=== PATIENT | female | born 1965 | race Asian ===

== ENCOUNTER 2018-05-20 08:41 | Day surgery (SDC) | payer OTHER, SELFPAY ==
[2018-05-18 10:39] VITALS: BMI 27.4
--- NOTE | 2018-05-20 | PATH_ITS ---
[facility] Accession Number: [id number] . 01 Material submitted: . PERINEAL CYST . 01 Diagnosis: Skin, Perineal Cyst, Excision: Epidermal inclusion cyst. MRV/05/22/2018 . 01 Electronically signed: . Hanna Hugo MD, Pathologist NPI- [id number] . 01 Gross description: . Received one formalin-filled container labeled with the patient's name and labeled perineal cyst. The specimen consists of a cordon-rosario, ovoid portion of skin and tissue which measures 1.0 x 0.7 x 0.7 cm. The specimen is inked blue. One dermatology sales representative section is submitted in one cassette. ([id number]) /FRR . 01 Pathologist provided ICD-10: L72.0 . 01 CPT . 952091 Performed at: 01 [facility] [address] [place] [address] [id number] MD Edilberto Caldwell MD Phone: [phone]
[2018-05-20 08:57] VITALS: BP 114/70; PULSE 87; RESP 16; TEMP 36.5; O2SAT 98; BMI 28.1
[2018-05-20] MEDS: LACTATED RINGERS 1,000 ML 42 ML IV (09:26)
[2018-05-20] MEDS: LIDOCAINE 1% W/EPI INJ 20 ML INJ (09:35)
[2018-05-20] MEDS: CEFOTETAN 2 GM/50 ML PIGGYBACK IV (09:35)
[2018-05-20] MEDS: BUPIVACAINE 0.5% (PF) VIAL 30 ML INJ (09:35)
--- NOTE | 2018-05-20 09:50 | SUR.OPER ---
Lithotomy on padded OR bed, head on pillow, arms secured on padded arm boards at <90 degrees abduction. Legs secured in padded yellow fins stirrups.
[2018-05-20 10:02] VITALS: BP 108/58; PULSE 79; RESP 16; TEMP 36.6; O2SAT 96
[2018-05-20] MEDS: BACITRACIN 28 GM OINT 1 APPLIC TOP (10:06)
[2018-05-20 10:07] VITALS: BP 110/60; PULSE 75; RESP 14; TEMP 36.6; O2SAT 97
[2018-05-20 10:12] VITALS: BP 115/63; PULSE 71; RESP 13; TEMP 36.5; O2SAT 97
--- NOTE | 2018-05-20 10:20 | PM.PREOP ---
Pre-operative Note Interval Note Pre-op Check: Yes History & Physical Reviewed by Physician Changes: No
[2018-05-20 10:41] VITALS: BP 109/55; PULSE 70; RESP 16; TEMP 36.7; O2SAT 98
--- NOTE | 2018-05-20 10:49 | SUR.PHASEII ---
Upon arrival to phase 2 pt c/o pain with breathing. I listened to all 4 lobes and pt had clear and equal BS. Respiratory rate and saturations both within normal limits. Pt coughed with each deep breath and afterwards she said the pain was passing. I reminded pt to continue deep breathing as the lower parts of her lungs are just opening up after breathing shallowly during sedation for the procedure. I informed the pt and spouse about respiratory signs/symptoms that she should return to an ER for (shortness of breath, difficulty breathing, worsening pain with breathing, etc.)
--- NOTE | 2018-05-22 00:23 | PM.OP.1 ---
Operative Date/Time/Diagnoses Date of procedure: 05/20/18 Time of procedure: 12:23 Pre-op diagnosis: Perineal cyst Post-op diagnosis: same Procedure & Clinicians Procedure: Excision of perineal cyst Same procedure as scheduled: Yes Indications: Repeatedly infected and troublesome cyst of the perineal region. Surgeon: Jahaira Calderon Click Yes if Unassisted: Yes Anesthesia Type: General (Ahsaei) Operative Notes Findings: One to 1-11/2 cm cystic structure excised in total. Closure Type: primary Specimen(s): other (Specimen to path in formalin) Estimated Blood Loss (mL): 5 Procedure in detail: After obtaining informed consent, the patient brought to the operating room and placed in the supine position on the operating table. Following successful induction of general endotracheal anesthesia, appropriate padding of all bony prominences, and placement of appropriate monitors, the legs were placed in Avni stirrups and the perineum prepped and draped in the standard surgical fashion. A time-out was held per SCOAP protocol. Following infiltration with local anesthetic to create a field block, an elliptical incision was created around the palpable and visible lesion in the left side of the perineal body. The entire lesion was excised in total. It was passed from the table and placed in formalin. The resulting defect was addressed with Vicryl and chromic suture. Antibiotic ointment was applied. All sponge, needle, and instrument counts were correct at the conclusion the case. Patient was allowed to wake from anesthesia without difficulty and taken to the postanesthesia care unit in good condition. Complications: none Condition: stable Disposition: PACU Plan for aftercare: 1. Discharge to home 2. Follow up with me in my office in 2 weeks
== END 2018-05-20 11:10 | disposition home or self-care (01) ==
PROVIDERS: PCP Family Medicine; Visit Provider Surgery
PROC: (CPT 11422; principal; 2018-05-20 09:00)
DX: L72.0 Epidermal cyst (principal)
CPT/HCPCS: 11422; 88304; J1100; J2405; J2704; J3010

== ENCOUNTER 2018-09-16 10:36 | Emergency (ER) | payer OTHER, SELFPAY ==
[2018-09-16 10:39] VITALS: BP 127/61; PULSE 82; RESP 14; TEMP 36.7; O2SAT 96
[2018-09-16 11:07] LABS: Bacteria Urine Few (2-10); RBC Urine 1-5/HPF (0-5/HPF); Squamous Epithelial Cell Urine 0-1 /HPF; WBC Urine 5-10/HPF (0-5/HPF)
[2018-09-16 11:08] LABS: Culture Indicated Urine Specimen Cultured
--- NOTE | 2018-09-16 11:24 | ED.BACK ---
HPI - Back Pain/Injury General Chief Complaint: Back Pain/Injury Stated Complaint: KIDNEY INFEC? BACK ACHE Time Seen by Provider: 09/16/18 10:39 Source: patient Mode of arrival: ambulatory Limitations: no limitations History of Present Illness HPI Narrative: 53-year-old female here for evaluation of right-sided back pain. She states that has been going on for the past couple days. Has not tried anything for it. Does seem to be positional. Has no urinary symptoms. No nausea vomiting. No fevers. Has not tried anything for it except for Motrin. Recently was treated with Keflex for urinary tract infection. At that time she was having dysuria. She has been evaluated in the past by Nephrology secondary to hematuria. 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 Related Data Home Medications Medication Instructions Recorded Confirmed cholecalciferol (vitamin D3) 1,000 1,000 unit PO DAILY 05/11/18 09/16/18 unit capsule fluticasone 50 mcg/actuation nasal 1 spray NASAL DAILY 05/11/18 09/16/18 spray,suspension multivitamin 1 tab PO DAILY 09/16/18 09/16/18 Previous Rx's Medication Instructions Recorded hydrocodone-acetaminophen [[place]] 1 tab PO Q4-6H PRN #4 tab 09/16/18 Allergies Allergy/AdvReac Type Severity Reaction Status Date / Time No Known Drug Allergies Allergy Verified 09/16/18 10:44 Review of Systems Constitutional Denies fever(s), Denies headache(s) and Denies weakness ENT Ears, Nose, Mouth, and Throat: Denies headache(s) Cardiovascular Denies chest pain and Denies dyspnea Respiratory Denies dyspnea Gastrointestinal Gastrointestinal: Denies abdominal pain, Denies nausea and Denies vomiting Genitourinary Denies hematuria, Denies difficulty voiding, Denies dysuria, Denies pelvic pain and Denies vaginal discharge Musculoskeletal Denies abnormal gait, Denies back pain and Denies tingling Integumentary/Breasts Denies rash Neurologic Denies abnormal gait, Denies behavioral changes, Denies headache(s), Denies tingling, Denies paresthesias and Denies weakness Psychiatric Denies behavioral changes Hematologic/Lymphatic Denies easy bleeding and Denies easy bruising PFSH Medical History Diverticulosis of sigmoid colon (Acute) Surgical History History of colonoscopy (Acute) H/O bilateral breast biopsy (Resolved) History of section, classical (Resolved) Family History Father Cancer Brother Cancer Social History marital status: household members: spouse occupational status: employed Smoking Status: Never smoker alcohol intake: current substance use type: does not use Family History Father Cancer Brother Cancer Social History marital status: household members: spouse occupational status: employed Smoking Status: Never smoker alcohol intake: current substance use type: does not use Exam Initial Vital Signs Initial Vital Signs: Vital Signs Temperature 98.1 F 09/16/18 10:39 Pulse Rate 82 09/16/18 10:39 Respiratory Rate 14 09/16/18 10:39 Blood Pressure 127/61 09/16/18 10:39 Pulse Oximetry 96 09/16/18 10:39 Const General: cooperative, comfortable, well developed, well groomed and No acute distress Orientation: alert, awake and oriented x3 HENMT Head: normal to inspection and normocephalic Resp Effort & Inspection: normal respiratory effort Auscultation: clear to auscultation bilaterally Cardio Rate: regular rate Rhythm: regular rhythm GI Inspection: non-distended Palpation: soft, No firm and No tender Back/Spine/Pelvis Back: CVA tenderness right Thoracic/Lumbar Spine: other (Right-sided paraspinal lumbar pain) Skin Lesions: no lesions Rashes: no rashes Neuro General: alert, awake and oriented x3 Cognition: normal cognition Speech: speech normal Extrem General: normal to inspection and capillary refill normal Psych Appearance: grossly normal and well kempt Course Orders Ordered: ED Orders 09/16/18 11:42 Basic Metabolic Panel Stat Complete Blood Count AUTO DIFF Stat Creatine Kinase Stat Vital Signs - 8 hr 09/16/18 10:39 Temperature 98.1 F Pulse Rate 82 Respiratory Rate 14 Blood Pressure 127/61 Pulse Oximetry 96 MDM - Back Pain/Injury Lab Data Attestation: I reviewed the patient's lab results. Result diagrams: 09/16/18 11:42 09/16/18 11:42 Lab Results 09/16/18 09/16/18 09/16/18 Range/Units 11:42 11:42 11:42 WBC 6.9 (4.5-11.0) X10^3/uL RBC 4.34 (4.0-5.2) X10^6/uL Hgb 12.6 (12.0-16.0) g/dL Hct 38.1 (36-46) % MCV 87.8 (80-100) fL MCH 29.0 (26-34) PG MCHC 33.0 (30-36) % RDW 12.9 (11.6-14.8) % Plt Count 225 (150-400) X10^3/uL Neut % (Auto) 51.8 (50-75) % Lymph % (Auto) 37.0 (25-40) % [place] % (Auto) 7.6 (3-14) % Eos % (Auto) 2.8 (2-4) % Baso % (Auto) 0.8 (0-2) % Neut # (Auto) 3600 (5375-6759) /uL Lymph # (Auto) 2500 (8041-5950) /uL [place] # (Auto) 500 (0-900) /uL Eos # (Auto) 200 (0-450) /uL Baso # (Auto) 100 (0-100) /uL Sodium 139 (137-145) mmol/L Potassium 3.9 (3.4-5.1) mmol/L Chloride 104 (98-107) mmol/L Carbon Dioxide 26 (22-32) mmol/L BUN 12 (7-17) mg/dL Creatinine 0.60 (0.52-1.04) mg/dL Estimated GFR > 60.0 (>60) mL/min BUN/Creatinine Ratio 20.0 (6-22) Glucose 90 (70-100) mg/dL Calcium 9.6 (8.4-10.2) mg/dL Total Creatine Kinase 74 (30-135) U/L Urine RBC (0-5/HPF) Urine WBC (0-5/HPF) Ur Squamous Epith Cells Urine Bacteria (None) Ur Culture Indicated? 09/16/18 Range/Units Unknown WBC (4.5-11.0) X10^3/uL RBC (4.0-5.2) X10^6/uL Hgb (12.0-16.0) g/dL Hct (36-46) % MCV (80-100) fL MCH (26-34) PG MCHC (30-36) % RDW (11.6-14.8) % Plt Count (150-400) X10^3/uL Neut % (Auto) (50-75) % Lymph % (Auto) (25-40) % [place] % (Auto) (3-14) % Eos % (Auto) (2-4) % Baso % (Auto) (0-2) % Neut # (Auto) (5462-7378) /uL Lymph # (Auto) (5486-4710) /uL [place] # (Auto) (0-900) /uL Eos # (Auto) (0-450) /uL Baso # (Auto) (0-100) /uL Sodium (137-145) mmol/L Potassium (3.4-5.1) mmol/L Chloride (98-107) mmol/L Carbon Dioxide (22-32) mmol/L BUN (7-17) mg/dL Creatinine (0.52-1.04) mg/dL Estimated GFR (>60) mL/min BUN/Creatinine Ratio (6-22) Glucose (70-100) mg/dL Calcium (8.4-10.2) mg/dL Total Creatine Kinase (30-135) U/L Urine RBC 1-5/hpf (0-5/HPF) Urine WBC 5-10/hpf H (0-5/HPF) Ur Squamous Epith Cells 0-1 /hpf Urine Bacteria Few (2-10) H (None) Ur Culture Indicated? Specimen cultured Urine Dip Bedside Urine Glucose Negative Bedside Urine Bilirubin - Negative Bedside Urine Ketone - Negative Urine Specific [place] 1.015 Bedside Urine Occult Blood ++ Bedside Urine pH 6.0 Bedside Urine Protein - Negative Bedside Urine Urobilinogen - Negative Bedside Urine Nitrite - Negative Bedside Urine Leukocytes +++ 500 Esterase MDM Narrative Medical decision making narrative: Patient's urinalysis today is somewhat consistent with a urinary tract infection however she has no dysuria. With a right-sided flank pain there is some concern of pyelonephritis however she is afebrile and is not having any vomiting. Her right-sided flank pain could very well be musculoskeletal in nature. Patient was recently treated with Keflex for urinary tract infection which he had dysuria at that time. She has also recently treated with Augmentin for a dental infection. After discussion of my concerns about this potentially being a kidney infection she had concerns about taking another course of antibiotics. After this discussion we decided to wait for the urine culture to return and also for sensitivities. I did inform her that if we do wait there is the potential that over the next couple days her symptoms worsen. She was given return precautions with regard to this. The CK was ordered because she had blood in her urine but no red blood cells. There is no signs of rhabdo. Will send home with a small amount of pain medication. Her kidney function was normal today. Patient expressed understanding and agreement this plan. Discharge Plan Departure Patient Disposition: Home Clinical Impression: Acute flank pain Instructions: DI for Flank Pain, Exercise May Reduce Risk of Low Back Pain Activity Restrictions/Additional Instructions: After our discussion you decided to wait on any antibiotics until the culture returns with the antibiotic sensitivities. This will take 3-4 days to results. We will call you for any positive results. If your symptoms worsen please return to the emergency department. Contact your primary care doctor for a follow-up. Prescriptions: New hydrocodone-acetaminophen [[place]] 5-325 mg tablet 1 tab PO Q4-6H PRN (Reason: pain) Qty: 4 RF: 0 No Action fluticasone 50 mcg/actuation spray,suspension 1 spray NASAL DAILY RF: 0 cholecalciferol (vitamin D3) 1,000 unit capsule 1,000 unit PO DAILY RF: 0 multivitamin Tablet 1 tab PO DAILY RF: 0 Referrals: Liza Chavira DO [Primary Care Provider] -
[2018-09-16 11:55] LABS: Add Manual Diff / Slide Review NO; Basophils Absolute Auto 100 /uL (0-100); Basophils Percent Auto 0.8 % (0-2); Eosinophils Absolute Auto 200 /uL (0-450); Eosinophils Percent Auto 2.8 % (2-4); Hematocrit 38.1 % (36-46); Hemoglobin 12.6 g/dL (12.0-16.0); Lymphocytes Absolute Auto 2500 /uL (1100-4500); Mean Corpuscular Volume 87.8 fL (80-100); Monocytes Absolute Auto 500 /uL (0-900); Monocytes Percent Auto 7.6 % (3-14); Neutrophils Absolute Auto 3600 /uL (1500-7000); Neutrophils Percent Auto 51.8 % (50-75); Platelet Count 225 X10^3/uL (150-400); Red Blood Cell Count 4.34 X10^6/uL (4.0-5.2); Red Cell Distribution Width 12.9 % (11.6-14.8); White Blood Cell Count 6.9 X10^3/uL (4.5-11.0)
[2018-09-16 12:00] LABS: Blood Urea Nitrogen 12 mg/dL (7-17); Calcium 9.6 mg/dL (8.4-10.2); Carbon Dioxide 26 mmol/L (22-32); Chloride 104 mmol/L (98-107); Creatine Kinase 74 U/L (30-135); Estimated Glomerular Filt Rate > 60.0 mL/min (>60); Glucose 90 mg/dL (70-100); HEMOLYSIS < 15 (0-50); Potassium 3.9 mmol/L (3.4-5.1); Sodium 139 mmol/L (137-145)
[2018-09-16 12:49] VITALS: BP 111/45; PULSE 67; RESP 16; TEMP 36.6; O2SAT 95
== END 2018-09-16 12:51 | disposition home or self-care (01) ==
PROVIDERS: Emergency Provider Emergency Medicine; PCP Family Medicine
DX: R10.9 Unspecified abdominal pain (principal)
CPT/HCPCS: 36415; 80048; 81003; 81015; 82550; 85025; 87086; 99282; 99283

== ENCOUNTER → 2019-01-27 15:34 | Outpatient (CLI) | payer OTHER, SELFPAY ==
--- NOTE | 2019-01-27 | DI.US.S_ITS ---
PROCEDURE: US SOFT TISSUE HEAD AND NECK INDICATIONS: localized swelling TECHNIQUE: Real-time scanning was performed of the neck region of interest, with image documentation. COMPARISON: None. FINDINGS: Sonographic assessment was performed in the area beneath the occipital region of calvarium to include the upper neck. No underlying cystic or solid mass is found. Thickened adipose tissue is present. IMPRESSION: Fatty soft tissue is present in the area of patient's clinical concern below the calvarial occipital portion of the posterior head as it interfaces with the upper posterior neck. Dictated by: Alex Araiza M.D. on 01/27/2019 at 16:26 Approved by: Alex Araiza M.D. on 01/27/2019 at 16:27
== END ==
PROVIDERS: PCP Family Medicine; Visit Provider Family Medicine
DX: R22.1 Localized swelling, mass and lump, neck (principal)
CPT/HCPCS: 76536

== ENCOUNTER 2019-10-13 22:03 | Emergency (ER) | payer OTHER, SELFPAY ==
[2019-10-13 22:18] VITALS: BP 144/69; PULSE 109; RESP 14; TEMP 36.7; O2SAT 98
--- NOTE | 2019-10-13 22:21 | ED.ABDPAIN ---
HPI - Abdominal Pain General Chief Complaint: Abdominal Pain Stated Complaint: ABDOMINAL PAIN Time Seen by Provider: 10/13/19 22:21 Source: patient Mode of arrival: Ambulatory Limitations: no limitations History of Present Illness HPI narrative: This is a 54-year-old female comes in with complaint of pain in the lower abdominal region sort of centralized. Patient states pain started over the last day or so. Patient has not had fevers, she denies any nausea or vomiting. She denies any diarrhea or constipation. She states she did have 3 bowel movements today all well-formed was atypical to have that frequency. She denies any black or bloody stool. She did have some flank pain on the left and then has since moved more to the left lower and mid abdomen. Patient has not had any urinary frequency, dysuria or urgency. She also states that she has had chronic hematuria she has been worked up by Nephrology was recommend to have a kidney biopsy but ultimately never did as her labs all improved otherwise. She denies any other current medical issues. She does have a history of remotely. She states she has had a in the past. No tobacco, occasional alcohol, no illicit. Related Data Home Medications Medication Instructions Recorded Confirmed cholecalciferol (vitamin D3) 25 1,000 unit PO DAILY 05/11/18 09/16/18 mcg (1,000 unit) capsule fluticasone propionate 50 1 spray NASAL DAILY 05/11/18 09/16/18 mcg/actuation nasal spray,suspension multivitamin 1 tab PO DAILY 09/16/18 09/16/18 Previous Rx's Medication Instructions Recorded hydrocodone-acetaminophen [[place]] 1 tab PO Q4-6H PRN #4 tab 09/16/18 ciprofloxacin HCl 500 mg PO BID #20 tab 10/14/19 metronidazole [Flagyl] 500 mg PO TID #30 tab 10/14/19 Allergies Allergy/AdvReac Type Severity Reaction Status Date / Time No Known Drug Allergies Allergy Verified 09/16/18 10:44 Review of Systems Review of Systems ROS Unobtainable: All systems reviewed & are unremarkable except as noted in HPI and below Patient History Medical History Diverticulosis of sigmoid colon (Acute) Surgical History H/O bilateral breast biopsy (Resolved) History of section, classical (Resolved) History of colonoscopy (Acute) Family History Father Cancer Brother Cancer Social History marital status: household members: spouse occupational status: employed Smoking Status: Never smoker alcohol intake: current substance use type: does not use Smoking Status: Never smoker alcohol intake frequency: 0-2 drinks per day Substance Use Type: does not use Exam Narrative Exam Narrative: GENERAL: Alert and oriented x three, well-nourished, well-appearing female in mild distress. HEENT: Head normocephalic, atraumatic, EOMI, pupils reactive, face symmetric, moist mucous membranes NECK: Supple, full range of motion CARDIOVASCULAR: Regular rate and rhythm without murmurs, rubs or gallops. RESPIRATORY: Breath sounds equal bilaterally, no wheezes rales or rhonchi. ABDOMEN: Soft, mild suprapubic tenderness with moderate left lower quadrant tenderness. Normoactive bowel sounds all 4 quadrants. No guarding or rebound, rigidity, no mass : No CVA tenderness EXTREMITIES: Normal range of motion, no clubbing or edema. Neurovascularly intact NEUROLOGICAL: Cranial nerves II through XII grossly intact. Moving all extremities SKIN: Warm, dry, no petechiae, no rashes or lesions. Initial Vital Signs Initial Vital Signs: Vital Signs Temperature 98.1 F 10/13/19 22:18 Pulse Rate 109 H 10/13/19 22:18 Respiratory Rate 14 10/13/19 22:18 Blood Pressure 144/69 H 10/13/19 22:18 Pulse Oximetry 98 10/13/19 22:18 Course Orders Ordered: ED Orders 10/13/19 22:15 Complete Blood Count AUTO DIFF Stat Comprehensive Metabolic Panel Stat Lipase Stat 10/13/19 22:30 Urine Microscopic Stat 10/13/19 22:49 CT abdomen pelvis w con Stat Discontinued Medications Ciprofloxacin (Cipro) 500 mg PO NOW ONE Stop: 10/14/19 00:13 Last Admin: 10/14/19 00:32 Dose: 500 mg Documented by: TOSHIA Sodium Chloride (Normal Saline 0.9%) 1,000 mls @ 1,000 mls/hr IV BOLUS ONE Stop: 10/14/19 00:08 Last Infusion: 10/14/19 00:39 Dose: 0 mls/hr Documented by: Admin: 10/13/19 23:25 Dose: 1,000 mls/hr Documented by: TOSHIA Ketorolac Tromethamine (Toradol) 30 mg IV NOW ONE Stop: 10/13/19 22:50 Last Admin: 10/13/19 23:05 Dose: 30 mg Documented by: TOSHIA Metronidazole (Metronidazole) 500 mg PO NOW ONE Stop: 10/14/19 00:13 Last Admin: 10/14/19 00:32 Dose: 500 mg Documented by: TOSHIA Oxycodone/Acetaminophen (Endocet 5/325 Prepack) 1 bottle MISC SEEINSTR ONE Stop: 10/14/19 00:13 Last Admin: 10/14/19 00:31 Dose: 1 bottle Documented by: TOSHIA Vital Signs Vital signs: Vital Signs - 8 hr 10/13/19 22:18 10/14/19 00:48 Temperature 98.1 F Pulse Rate 109 H 79 Respiratory Rate 14 16 Blood Pressure 144/69 H 125/78 Pulse Oximetry 98 100 MDM - Abdominal Pain Lab Data Attestation: I reviewed the patient's lab results. Result diagrams: 10/13/19 22:15 10/13/19 22:15 Labs: Lab Results 10/13/19 10/13/19 10/13/19 Range/Units 22:15 22:15 22:30 WBC 9.2 (4.5-11.0) X10^3/uL RBC 4.28 (4.0-5.2) X10^6/uL Hgb 12.8 (12.0-16.0) g/dL Hct 37.3 (36-46) % MCV 87.0 (80-100) fL MCH 29.8 (26-34) PG MCHC 34.2 (30-36) % RDW 13.2 (11.6-14.8) % Plt Count 220 (150-400) X10^3/uL Neut % (Auto) 68.4 (50-75) % Lymph % (Auto) 21.9 L (25-40) % [place] % (Auto) 6.6 (3-14) % Eos % (Auto) 1.3 L (2-4) % Baso % (Auto) 1.8 (0-2) % Neut # (Auto) 6300 (0410-4741) /uL Lymph # (Auto) 2000 (2359-9271) /uL [place] # (Auto) 600 (0-900) /uL Eos # (Auto) 100 (0-450) /uL Baso # (Auto) 200 H (0-100) /uL Sodium 139 (137-145) mmol/L Potassium 3.8 (3.4-5.1) mmol/L Chloride 103 (98-107) mmol/L Carbon Dioxide 31 (22-32) mmol/L BUN 16 (7-17) mg/dL Creatinine 0.72 (0.52-1.04) mg/dL Estimated GFR > 60.0 (>60) mL/min BUN/Creatinine Ratio 22.2 H (6-22) Glucose 107 H (70-100) mg/dL Calcium 10.0 (8.4-10.2) mg/dL Total Bilirubin 0.5 (0.2-1.3) mg/dL AST 21 (14-36) IU/L ALT 11 (<35) IU/L Alkaline Phosphatase 78 (38-126) U/L Total Protein 8.0 (6.3-8.2) g/dL Albumin 4.4 (3.5-5.0) g/dL Globulin 3.6 (1.7-4.1) g/dL Albumin/Globulin Ratio 1.2 (1.0-2.8) Lipase 65 (23-300) U/L Urine RBC 1-5/hpf (0-5/HPF) Urine WBC None seen (0-5/HPF) Ur Squamous Epith Cells 1-5 /hpf (0-5/HPF) Urine Bacteria None seen (None) Ur Culture Indicated? Cult not indicated Point of care testing: Urine Dip Bedside Urine Glucose Negative Bedside Urine Bilirubin - Negative Bedside Urine Ketone - Negative Urine Specific [place] 1.015 Bedside Urine Occult Blood ++ Bedside Urine pH 7.0 Bedside Urine Protein - Negative Bedside Urine Urobilinogen - Negative Bedside Urine Nitrite - Negative Bedside Urine Leukocytes - Negative Esterase Imaging Data CT scan - abdomen/pelvis: Radiologist's Impression: Inflammatory stranding noted around the sigmoid colon left pelvis. While thickening noted along several diverticula. Minimal fluid in the pelvis. No free air or fluid collection. MDM Narrative Medical decision making narrative: Patient's imaging shows sigmoid diverticulitis. Labs do not show any acute abnormalities. Patient's urine shows blood which she states she has had chronically but no signs of infection. She was slightly tachycardic on arrival but vital signs have improved she did receive fluids as well as Toradol with some improvement in pain states starting to return. Strict return precautions were given. She has got a prescription for Cipro and Flagyl given the 1st dose here in the department. She is given a prepack Percocet but deferred any additional pain medications long-term. We discussed if she is not having improvement her symptoms at 24-48 hours she should be re-evaluated. Discharge Plan Departure Patient Disposition: Home Clinical Impression: Diverticulitis of sigmoid colon Discharge Date/Time: 10/14/19 00:48 Instructions: DI for Diverticulitis Activity Restrictions/Additional Instructions: Follow-up in the next week if your symptoms are not improving. Take antibiotics until completely gone. I would recommend taking a probiotic with this medication Take pain medication as needed, this medication can make you sleepy do not drive, perform hazardous activities or make any major decisions while taking it. You may take ibuprofen and/or Tylenol as needed instead. Return to the ER for fevers greater 100.4 F, worsening abdominal pain, persistent vomiting, black or bloody stools, inability urinate or other new or concerning symptoms. Prescriptions: New metronidazole [Flagyl] 500 mg tablet 500 mg PO TID Qty: 30 RF: 0 ciprofloxacin HCl 500 mg tablet 500 mg PO BID Qty: 20 RF: 0 No Action fluticasone propionate 50 mcg/actuation spray,suspension 1 spray NASAL DAILY RF: 0 cholecalciferol (vitamin D3) 1,000 unit capsule 1,000 unit PO DAILY RF: 0 multivitamin Tablet 1 tab PO DAILY RF: 0 hydrocodone-acetaminophen [[place]] 5-325 mg tablet 1 tab PO Q4-6H PRN (Reason: pain) Qty: 4 RF: 0 Referrals: Liza Chavira DO [Primary Care Provider] -
[2019-10-13 22:35] LABS: Add Manual Diff / Slide Review NO; Basophils Absolute Auto 200 /uL (0-100); Basophils Percent Auto 1.8 % (0-2); Eosinophils Absolute Auto 100 /uL (0-450); Eosinophils Percent Auto 1.3 % (2-4); Hematocrit 37.3 % (36-46); Hemoglobin 12.8 g/dL (12.0-16.0); Lymphocytes Absolute Auto 2000 /uL (1100-4500); Lymphocytes Percent Auto 21.9 % (25-40); Mean Corpuscular HGB Conc 34.2 % (30-36); Mean Corpuscular Hemoglobin 29.8 PG (26-34); Monocytes Absolute Auto 600 /uL (0-900); Monocytes Percent Auto 6.6 % (3-14); Neutrophils Absolute Auto 6300 /uL (1500-7000); Neutrophils Percent Auto 68.4 % (50-75); Platelet Count 220 X10^3/uL (150-400); Red Blood Cell Count 4.28 X10^6/uL (4.0-5.2); Red Cell Distribution Width 13.2 % (11.6-14.8); White Blood Cell Count 9.2 X10^3/uL (4.5-11.0)
[2019-10-13 22:36] LABS: Bacteria Urine None Seen; WBC Urine None Seen (0-5/HPF)
[2019-10-13 22:38] LABS: Alanine Aminotransferase 11 IU/L (<35); Albumin 4.4 g/dL (3.5-5.0); Albumin Globulin Ratio 1.2 (1.0-2.8); Alkaline Phosphatase 78 U/L (38-126); Aspartate Aminotransferase 21 IU/L (14-36); BUN Creatinine Ratio 22.2 (6-22); Bilirubin Total 0.5 mg/dL (0.2-1.3); Blood Urea Nitrogen 16 mg/dL (7-17); Carbon Dioxide 31 mmol/L (22-32); Chloride 103 mmol/L (98-107); Estimated Glomerular Filt Rate > 60.0 mL/min (>60); Globulin 3.6 g/dL (1.7-4.1); Glucose 107 mg/dL (70-100); HEMOLYSIS < 15 (0-50); Lipase 65 U/L (23-300); Potassium 3.8 mmol/L (3.4-5.1); Sodium 139 mmol/L (137-145)
--- NOTE | 2019-10-13 22:49 | DI.CT.S_ITS ---
PROCEDURE: CT ABDOMEN PELVIS W CON INDICATIONS: left flank, Left lower quadrant pain TECHNIQUE: After the administration of intravenous contrast, 5 mm thick sections acquired from the diaphragm to the symphysis. 5 mm coronal and sagittal reformats were acquired. For radiation dose reduction, the following was used: automated exposure control, adjustment of mA and/or kV according to patient size. COMPARISON: None. FINDINGS: Image quality: Excellent. ABDOMEN: Lung bases: Lung bases are clear. Heart size is normal. Bilateral breast implants. Solid organs: Liver is normal in size and enhancement. Gallbladder is normal. Biliary system is non dilated. Pancreas enhances normally. Spleen is normal in size and enhancement. No adrenal nodules. Kidneys demonstrate normal size and enhancement, without hydronephrosis. Peritoneum and bowel: There colonic diverticula. Minimal stranding and thickening of sigmoid colon consistent with diverticulitis. Normal appendix. Bowel loops demonstrate normal wall thickness and caliber. No free fluid or air. Nodes and vessels: No retroperitoneal or mesenteric adenopathy by size criteria. Aorta and inferior vena cava are normal in size. Miscellaneous: Tiny fat containing umbilical hernia. PELVIS: Genitourinary: Bladder wall thickness is normal. Uterus and ovaries normal. Small free fluid in the cul-de-sac. Miscellaneous: No inguinal hernias or adenopathy. Bones: No suspicious bony lesions. No vertebral body compression fractures. Degenerative disc disease and facet arthropathy at L5-S1. IMPRESSION: 1. Diverticulosis. There is mild thickening and stranding around sigmoid colon consistent with acute diverticulitis. No significant discrepancy with the dumpling machine operator radiology preliminary report. Dictated by: Graeme Zarco M.D. on 10/14/2019 at 7:46 Approved by: Graeme Zarco M.D. on 10/14/2019 at 7:50
[2019-10-13 23:02] LABS: Culture Indicated Urine Cult Not Indicated; RBC Urine 1-5/HPF (0-5/HPF); Squamous Epithelial Cell Urine 1-5 /HPF (0-5/HPF)
[2019-10-13] MEDS: KETOROLAC 60 MG/2 ML VIAL 30 MG IV (23:05)
[2019-10-13] MEDS: SODIUM CHLORIDE 0.9% 1,000 ML 1000 ML IV (23:25)
[2019-10-14] MEDS: OXYCODONE/APAP 5/325 PREPACK 1 BOTTLE MISC (00:31)
[2019-10-14] MEDS: CIPROFLOXACIN 500 MG TABLET PO (00:32)
[2019-10-14] MEDS: metroNIDAZOLE 250 MG TABLET 500 MG PO (00:32)
[2019-10-14 00:48] VITALS: BP 125/78; PULSE 79; RESP 16; O2SAT 100
== END 2019-10-14 00:48 | disposition home or self-care (01) ==
PROVIDERS: Emergency Provider Emergency Medicine; PCP Family Medicine
DX: K57.32 Diverticulitis of large intestine without perforation or abscess without bleeding (principal); R00.0 Tachycardia, unspecified
CPT/HCPCS: 36415; 74177; 80053; 81003; 81015; 83690; 85025; 96361; 96374; 99284; J1885; Q9967

== ENCOUNTER → 2020-06-29 11:43 | Outpatient (CLI) | payer OTHER, SELFPAY ==
--- NOTE | 2020-06-29 | DI.MRI.S_ITS ---
PROCEDURE: MR KNEE RT WO CON INDICATIONS: Pain in right knee TECHNIQUE: Noncontrast sagittal PD fast spin echo and T2 fast spin echo with fat saturation, sagittal 3-D FLASH with fat saturation; coronal T1 spin echo and PD fast spin echo with fat saturation, and axial PD fast spin echo with fat saturation through the knee. COMPARISON: None. FINDINGS: Image quality: Excellent. Menisci: Linear horizontally oriented high signal intensity traverses the posterior horn medial meniscus, demonstrating inferior articular surface extension, indicating horizontal tearing. Linear and amorphous high signal intensity within the lateral meniscal body and posterior horn is present , demonstrating vague inferior articular surface extension, indicating oblique tearing. Cruciate ligaments: The anterior and posterior cruciate ligaments appear intact. Medial structures: The medial collateral ligament appears intact. Visualized portions of the pes anserinus tendons appear normal. No abnormal bursal fluid. Lateral structures: The lateral collateral ligament, long and short heads of the biceps femoris tendon appear intact. The popliteus tendon appears normal. Iliotibial band appears normal. Anterior structures: The quadriceps and patellar tendons appear intact. Patellar alignment is normal. No femoral trochlear dysplasia or ventral trochlear prominence. Mild edema in the superolateral aspect of the infrapatellar fat pad. Bones and cartilage: No bone marrow contusions or fractures. Articular cartilage fibrillation overlies the lateral patellar facet inferiorly. Mild articular cartilage loss diffusely overlies the weight-bearing aspects of the medial femoral condyle and medial tibial plateau. Joint space: There is physiologic knee joint fluid. Trace Cottrell's cyst. Normal appearing synovial plicae are incidentally noted. IMPRESSION: 1. Medial meniscal tearing. 2. Probable lateral meniscal tearing. 3. Tricompartmental osteoarthritis with associated articular cartilage loss. 4. Findings consistent with lateral patellofemoral friction syndrome in the appropriate clinical setting. 5. Trace Cottrell's cyst. Dictated by: Wild Dotson M.D. on 06/29/2020 at 13:31 Approved by: Wild Dotson M.D. on 06/29/2020 at 13:33
== END ==
PROVIDERS: PCP Family Medicine; Referring Provider Family Medicine; Visit Provider Family Medicine
DX: M25.561 Pain in right knee (principal); S83.241A Other tear of medial meniscus, current injury, right knee, initial encounter; M17.11 Unilateral primary osteoarthritis, right knee
CPT/HCPCS: 73721

== ENCOUNTER → 2020-10-16 13:25 | Outpatient (CLI) | payer OTHER, SELFPAY ==
--- NOTE | 2020-10-16 13:27 | DI.MRI.S_ITS ---
PROCEDURE: MR HEAD/BRAIN WO/W CON INDICATIONS: Chronic motor or vocal tic,Unspecified visual dis TECHNIQUE: Noncontrast sagittal T1 spin echo, axial T2 fast spin echo, axial FLAIR, axial gradient echo, axial diffusion and ADC through the brain. Axial/sagittal/coronal 3-D CISS, thin-slice axial T1 spin echo with fat saturation through the skull base. After the administration of contrast, axial and coronal thin-slice T1 spin echo with fat saturation through the skull base, axial T1 spin echo with fat saturation through the brain. COMPARISON: None. FINDINGS: Image quality: Excellent. Trigeminal nerves: Cisternal segments of the trigeminal nerves follow normal course have normal contour. Cavernous sinus demonstrates normal postcontrast enhancement. The visualized V1, V2 and V3 trigeminal nerve divisions follow normal course and have normal contour bilaterally. No abnormal mass or abnormal postcontrast enhancement identified along the course of the trigeminal nerves are trigeminal nerve divisions. CSF spaces: Ventricles are normal in size and shape. No extra-axial fluid collections. Basal cisterns are patent. Brain: No intracranial bleeds or mass effects. No abnormal intracranial enhancement. Diffusion weighted images show no acute ischemic insults. Monge-white matter interface is intact. Brainstem is normal. Normal intravascular flow voids are present. Dural sinuses demonstrate normal postcontrast enhancement. Skull and face: Calvarial marrow signal is normal. Orbits appear normal. Optic nerves are normal in appearance. Ocular globes are normal in appearance. Extraocular muscles are normal. No inflammatory changes, fluid or mass identified in the retro bulbar orbits. Sinuses: Sinuses and mastoids appear clear. IMPRESSION: 1. No acute intracranial disease process. 2. No abnormal intracranial mass or mass effect. 3. No suspicious postcontrast enhancement. Dictated by: Jaclyn Gibson MD, PhD on 10/16/2020 at 15:13 Approved by: Jaclyn Gibson MD, PhD on 10/16/2020 at 15:21
== END ==
PROVIDERS: PCP Family Medicine; Referring Provider Family Medicine; Visit Provider Family Medicine
DX: F95.1 Chronic motor or vocal tic disorder (principal); H53.9 Unspecified visual disturbance; G24.5 Blepharospasm
CPT/HCPCS: 70553

== ENCOUNTER → 2021-07-05 08:52 | Outpatient (CLI) | payer OTHER, SELFPAY ==
--- NOTE | 2021-07-05 | DI.MG.S_ITS ---
BILATERAL DIGITAL SCREENING MAMMOGRAM 3D/2D WITH CAD WITH AUGMENTATION: 07/05/2021 CLINICAL: Routine screening. Comparison is made to exams dated: 12/28/2018 mammogram, 06/03/2017 mammogram, and 06/11/2016 mammogram - [facility]. There are scattered fibroglandular elements in both breasts. Current study was also evaluated with a Computer Aided Detection (CAD) system. Bilateral breast implants are stable and intact. No significant masses, calcifications, or other findings are seen in either breast. There has been no significant interval change. IMPRESSION: NEGATIVE There is no mammographic evidence of malignancy. A 1 year screening mammogram is recommended. This exam was interpreted at Station ID: [id number]. NOTE: For mammograms, a report in lay terms will be sent to the patient. Approximately 15% of breast malignancies will not be visualized mammographically. In the management of a palpable breast mass, a negative mammogram must not discourage biopsy of a clinically suspicious lesion. Electronically Signed By: Luciana moralez/rupinder:07/05/2021 09:58:43 letter sent: Normal Exam ACR BI-RADS Category 1: Negative [id number]
== END ==
PROVIDERS: PCP Family Medicine; Referring Provider Family Medicine; Visit Provider Family Medicine
DX: Z12.31 Encounter for screening mammogram for malignant neoplasm of breast (principal)
CPT/HCPCS: 77063; 77067

== ENCOUNTER 2022-02-01 06:47 | Emergency (ER) | payer OTHER, SELFPAY ==
[2022-02-01 06:54] VITALS: BP 153/90; PULSE 102; RESP 20; TEMP 37; O2SAT 98; BMI 29.2
--- NOTE | 2022-02-01 06:59 | ED_ITS ---
HPI - Allergic Reaction General Chief complaint: Allergic Reaction Stated complaint: hives,face swelling Time Seen by Provider: 02/01/22 06:56 History of Present Illness HPI narrative: Patient is a 56-year-old female who has a history of blepharitis spasms she has been receiving Botox work. She has actually been getting hives every single day for the last 2 months. She is on antihistamines cetirizine and fexofenadine. She is actually supposed to have allergy testing in 2 days so she stopped all of her antihistamines. She woke up today she had hives again all over her body but noticed that her lips were swollen her tongue was swollen and she might have difficulty swallowing. But she is able to speak without any difficulty. The hives have improved without any sort of intervention. She discussed with her doctor that she can take whatever medicine she needs an order for her swelling of her face to go down. Related Data Home Medications Medication Instructions Recorded Confirmed cholecalciferol (vitamin D3) 25 1,000 unit PO DAILY 05/11/18 09/16/18 mcg (1,000 unit) capsule fluticasone propionate 50 1 spray intranasal DAILY 05/11/18 09/16/18 mcg/actuation nasal spray,suspension multivitamin 1 tab PO DAILY 09/16/18 09/16/18 Previous Rx's Medication Instructions Recorded hydrocodone 5 mg-acetaminophen 325 1 tab PO Q4-6H PRN pain #4 tabs 09/16/18 mg tablet ([place]) ciprofloxacin HCl 500 mg tablet 500 mg PO BID #20 tabs 10/14/19 metronidazole 500 mg tablet 500 mg PO TID #30 tabs 10/14/19 (Flagyl) epinephrine 0.3 mg/0.3 mL 0.3 mg (0.3 mL) IM Q5-15M PRN 02/01/22 injection, auto-injector anaphylaxis #2 ea prednisone 20 mg tablet 40 mg PO DAILY #10 tabs 02/01/22 Allergies Allergy/AdvReac Type Severity Reaction Status Date / Time No Known Drug Allergies Allergy Verified 09/16/18 10:44 Review of Systems Review of Systems Narrative: GENERAL: Denies chills,fever HEENT: See HPI RESPIRATORY: Denies dyspnea, cough, wheezing CARDIOVASCULAR: Denies chest pain, palpitations GASTROINTESTINAL: Denies nausea, vomiting MUSCULOSKELETAL: Denies extremity pain, injury SKIN: See HP NEUROLOGIC: Denies weakness, dizziness, headache, numbness 8 point review of systems is negative except for those stated above and HPI Patient History Medical History (Updated 02/01/22 @ 08:53 by Ronel Melo DO) Diverticulosis of sigmoid colon Surgical History H/O bilateral breast biopsy History of section, classical History of colonoscopy Family History Father Cancer Brother Cancer Social History marital status: household members: spouse occupational status: employed Smoking Status: Never smoker alcohol intake: current substance use type: does not use Smoking Status: Never smoker alcohol intake frequency: 0-2 drinks per day Substance Use Type: does not use Exam Initial Vital Signs Initial Vital Signs: Vital Signs Temperature 98.6 F 02/01/22 06:54 Pulse Rate 102 H 02/01/22 06:54 Respiratory Rate 20 02/01/22 06:54 Blood Pressure 153/90 H 02/01/22 06:54 Pulse Oximetry 98 02/01/22 06:54 Oxygen Delivery Method 02/01/22 06:54 GENERAL: Well-appearing, well-nourished and in no acute distress. HEENT: Head atraumatic,EOMI, pupils reactive, face symmetric, found to be sligh tly swollen. Tongue minimally edematous lips are noted to be swollen hoarse voice managing own secretions CARDIOVASCULAR: Regular rate and rhythm without murmurs, rubs or gallops. RESPIRATORY: Breath sounds equal bilaterally, no wheezes rales or rhonchi. EXTREMITIES: Normal range of motion, no clubbing or edema. Neurovascularly intact NEUROLOGICAL: Alert and oriented x4.Normal gait and speech. SKIN: No hives or urticaria noted. Patient has is that they have all gone away. Course Orders Ordered: Discontinued Medications Epinephrine HCl (Epinephrine 1 Mg/Ml) 0.5 mg IM NOW ONE Stop: 02/01/22 07:16 Last Admin: 02/01/22 07:23 Dose: 0.5 mg Documented By: EB Vital Signs Vital signs: Vital Signs - 8 hr 02/01/22 06:54 07/08/22 09:11 Temperature 98.6 F Pulse Rate 102 H 107 H Respiratory Rate 20 18 Blood Pressure 153/90 H 121/59 L Pulse Oximetry 98 97 Oxygen Delivery Method Room Air Room Air MDM - Allergic Reaction MDM Narrative Medical decision making narrative: Patient has had ongoing hives and allergic reaction. She is supposed to be worked up for in just a couple of days. She does have swelling of her lips minimal swelling of her tongue. Certainly no airway compromise. She has no hives or urticaria at this time. She is given a dose of epinephrine ED and monitored. Discharge Plan Departure Patient Disposition: Home Clinical Impression: Allergic reaction Instructions: DI for Anaphylaxis Activity Restrictions/Additional Instructions: *You have been diagnosed with allergic reaction *What to do: I strongly encourage you taking continue with year allergy testing workup. I hope that he can get it done in the next 2 days. Monitor your symptoms. May use epinephrine if you feel like her tongue swollen lip swelling throat is swollen or have difficulty swallowing. If you do give yourself epinephrine return to nearest emergency department for further monitoring. *Continue to take medications as directed Epinephrine as needed Prednisone 40 mg once a day for 5 days May continue antihistamines as previously recommended and prescribed *Follow up with your primary care provider in 2-3 days or call [phone] *Return to ER if you should have increased tongue swelling lip swelling hives not improving or any new, worsening or concerning symptoms Prescriptions: New prednisone 20 mg tablet 40 mg PO DAILY Qty: 10 0RF epinephrine 0.3 mg/0.3 mL auto-injector 0.3 mg IM Q5-15M PRN (Reason: anaphylaxis) Qty: 2 0RF Rx Instructions: do not exceed 3 doses per episode No Action fluticasone propionate 50 mcg/actuation spray,suspension 1 spray NASAL DAILY cholecalciferol (vitamin D3) 1,000 unit capsule 1,000 unit PO DAILY multivitamin Tablet 1 tab PO DAILY hydrocodone-acetaminophen [[place]] 5-325 mg tablet 1 tab PO Q4-6H PRN (Reason: pain) Qty: 4 0RF metronidazole [Flagyl] 500 mg tablet 500 mg PO TID Qty: 30 0RF ciprofloxacin HCl 500 mg tablet 500 mg PO BID Qty: 20 0RF Referrals: Liza Chavira DO [Primary Care Provider] -
[2022-02-01] MEDS: EPINEPHrine 1 MG/ML 0.5 MG IM (07:23)
[2022-02-01 09:11] VITALS: BP 121/59; PULSE 107; RESP 18; O2SAT 97
== END 2022-02-01 09:24 | disposition home or self-care (01) ==
PROVIDERS: Emergency Provider Emergency Medicine; PCP Family Medicine
DX: T78.40XA Allergy, unspecified, initial encounter (principal); L50.9 Urticaria, unspecified
CPT/HCPCS: 96372; 99283; J0171

== ENCOUNTER → 2023-11-20 16:41 | Outpatient (CLI) | payer OTHER, SELFPAY ==
--- NOTE | 2023-11-20 | DI.MRI.S_ITS ---
PROCEDURE: MR HEAD/BRAIN WO/W CON INDICATIONS: CHROINIC MOTOR VOCAL TIC/BLEPHAROSPASM/MIRGRAINES TECHNIQUE: Noncontrast axial T1 spin echo, axial T2 fast spin echo, sagittal and axial FLAIR, axial gradient echo, axial diffusion and ADC through the brain. After the administration of contrast, axial and coronal and sagittal T1 spin echo with fat saturation through the brain, coronal thin-slice T1 spin echo with fat saturation through the cavernous sinuses. COMPARISON: [facility], MR, MR HEAD/BRAIN WO/W CON, 10/16/2020, 13:37. FINDINGS: Image quality: Excellent. Cavernous sinuses: The cranial nerves within the cavernous sinuses and skull base demonstrate no significant abnormality. No masses or abnormal enhancement can be seen. CSF spaces: Ventricles are normal in size and shape. Basal cisterns are patent. No extra-axial fluid collections. Brain: No acute intracranial bleeds or mass effects. Monge-white matter interface is intact. No abnormal intracranial enhancement. Diffusion weighted images demonstrate no acute ischemic insults. Brainstem appears normal. Normal intravascular flow voids are present. Skull and face: Calvarial marrow signal is normal. Orbits appear normal. Sinuses: Sinuses and mastoids appear clear. IMPRESSION: No imaging explanation is found for this patient's presenting symptoms. No masses or abnormal enhancement can be seen. Dictated by: Allan Lopez M.D. on 11/20/2023 at 17:29 Approved by: Allan Lopez M.D. on 11/20/2023 at 17:30
== END ==
PROVIDERS: PCP Family Medicine; Referring Provider Family Medicine; Visit Provider Family Medicine
DX: F95.1 Chronic motor or vocal tic disorder (principal); G24.5 Blepharospasm; G43.909 Migraine, unspecified, not intractable, without status migrainosus
CPT/HCPCS: 70553; A9579

== ENCOUNTER → 2024-10-25 16:52 | Outpatient (CLI) | payer OTHER, SELFPAY ==
--- NOTE | 2024-10-25 16:54 | DI.MG.S_ITS ---
MM screening mammo implant BI: 10/25/2024. BI-RADS: 2 CLINICAL: 59-year old female for bilateral screening mammogram. Tyrer-Cuzick lifetime risk of 6.5%. No personal or first-degree family history of breast cancer. The patient has bilateral implants. The patient had prior bilateral breast biopsies. PRIOR EXAMS 07/05/2021. MAMMOGRAPHY TECHNIQUE: 2D and 3D (tomosynthesis) digital mammographic views obtained, with additional images as needed for full coverage. Current study was also evaluated with a Computer Aided Detection (CAD) system. DENSITY B. There are scattered areas of fibroglandular density. IMPLANTS Breast implants present. MAMMOGRAPHY FINDINGS Bilateral: There are no suspicious masses, calcifications, or other findings in the breast. No significant change from comparison. IMPRESSION: * No evidence of malignancy with benign findings. RECOMMENDATIONS Bilateral * Annual screening mammography. OVERALL ASSESSMENT CATEGORY BI-RADS-2: Benign. The [employer] recommends annual screening mammography beginning at age 40 for women with average risk of breast cancer. ELECTRONICALLY SIGNED: Stephani Cedeño M.D. on 10/26/2024 at 08:20:28 PM PT Interpreting Station ID: [id number]
== END ==
PROVIDERS: PCP Family Medicine; Referring Provider Family Medicine; Visit Provider Family Medicine
DX: Z12.31 Encounter for screening mammogram for malignant neoplasm of breast (principal); Z98.82 Breast implant status
CPT/HCPCS: 77063; 77067

== ENCOUNTER 2024-11-02 10:11 | Emergency (ER) | payer OTHER, SELFPAY ==
[2024-11-02 10:45] VITALS: BP 133/60; PULSE 52; RESP 19; TEMP 36.4; O2SAT 100; BMI 30.2
[2024-11-02] MEDS: TET,DIPH,PERTUSS(ACELL),VAC/PF 0.5 ML SYRINGE IM (13:18)
--- NOTE | 2024-11-02 13:25 | ED_ITS ---
HPI - Animal Bite <Felton Elias PA-C - Last Filed: 11/02/24 13:30> General Chief Complaint: Animal Bite Stated Complaint: Bit by a squirrel Time Seen by Provider: 11/02/24 13:06 Source: patient Mode of arrival: Family Vehicle History of Present Illness HPI narrative: 59-year-old female presents to the ED status post a squirrel bite and scratch sustained to her right middle finger earlier today. Patient states that she regularly feeds squirrels at home, today she was doing the same, when she got bitten at the tip of her right middle finger. Also sustained a couple of scratches to the base of the right middle finger. Patient has full range of motion. Patient states there was slight bleeding at the bite site, however it stopped quickly and she washed out the wounds well. Patient's tetanus status is unknown. Related Data Home Medications Medication Instructions Recorded Confirmed cholecalciferol (vitamin D3) 25 1,000 unit PO DAILY 05/11/18 09/16/18 mcg (1,000 unit) capsule fluticasone propionate 50 1 spray intranasal DAILY 05/11/18 09/16/18 mcg/actuation nasal spray,suspension multivitamin 1 tab PO DAILY 09/16/18 09/16/18 Previous Rx's Medication Instructions Recorded hydrocodone 5 mg-acetaminophen 325 1 tab PO Q4-6H PRN pain #4 tabs 09/16/18 mg tablet ([place]) ciprofloxacin HCl 500 mg tablet 500 mg PO BID #20 tabs 10/14/19 metronidazole 500 mg tablet 500 mg PO TID #30 tabs 10/14/19 (Flagyl) epinephrine 0.3 mg/0.3 mL 0.3 mg (0.3 mL) IM Q5-15M PRN 02/01/22 injection, auto-injector anaphylaxis #2 ea prednisone 20 mg tablet 40 mg (2 x 20 mg) PO DAILY #10 tabs 02/01/22 amoxicillin 875 mg-potassium 1 tab PO Q12H 7 days #14 tabs 11/02/24 clavulanate 125 mg tablet Allergies Allergy/AdvReac Type Severity Reaction Status Date / Time No Known Drug Allergies Allergy Verified 11/02/24 10:51 Review of Systems <Felton Elias PA-C - Last Filed: 11/02/24 13:30> Constitutional Constitutional: Denies chills, Denies fatigue, Denies fever(s), Denies frequent falls, Denies lethargy and Denies weakness Eyes Eyes: Denies change in vision, Denies eye discharge, Denies irritation and Denies loss of vision ENT Ears, Nose, Mouth, and Throat: Denies change in voice, Denies dizziness, Denies neck pain, Denies sore throat and Denies throat swelling Cardiovascular Cardiovascular: Denies chest pain, Denies irregular heart rhythm, Denies lightheadedness, Denies palpitations, Denies dyspnea, Denies dyspnea on exertion and Denies orthopnea Respiratory Respiratory: Denies cough, Denies dyspnea, Denies dyspnea on exertion and Denies wheezing Gastrointestinal Gastrointestinal: Denies abdominal pain, Denies change in bowel habits, Denies diarrhea, Denies nausea and Denies vomiting Musculoskeletal Musculoskeletal: Denies neck pain and Denies numbness Integumentary/Breasts Skin/Breast: Denies pruritus, Denies erythema, Denies rash and Denies wounds Comments: Squirrel bite and scratch to right middle finger Neurologic Neurologic: Denies behavioral changes, Denies confusion, Denies dizziness, Denies frequent falls, Denies loss of vision, Denies numbness and Denies weakness Psychiatric Psychiatric: Denies anxiety, Denies behavioral changes, Denies confusion, Denies depression, Denies homicidal ideation and Denies suicidal ideation Endocrine Endocrine: Denies fatigue, Denies flushing and Denies palpitations Hematologic/Lymphatic Hematologic/Lymphatic: Denies easy bruising Allergic/Immunologic Allergic/Immunologic: Denies urticaria, Denies throat swelling and Denies wheezing Patient History <Felton Elias PA-C - Last Filed: 11/02/24 13:30> Medical History Diverticulosis of sigmoid colon Surgical History History of colonoscopy H/O bilateral breast biopsy History of section, classical Family History Father Cancer Brother Cancer Social History marital status: household members: spouse occupational status: employed Smoking Status: Former smoker alcohol intake: current substance use type: does not use Smoking Status: Former smoker tobacco type: cigarettes alcohol intake frequency: 0-2 drinks per day Exam <Felton Elias PA-C - Last Filed: 11/02/24 13:30> Narrative Exam Narrative: Const General:?cooperative, healthy appearing and comfortable [facility] Head:?normal to inspection Ears:?hearing grossly normal bilaterally Nose:?external nose normal Face and sinus:?normal facial exam and sinuses nontender Mouth:?oral mucosae normal Throat:?posterior oropharynx normal Eyes General:?appearance normal, both eyes and all related structures Neck Neck:?normal visual inspection and no lymphadenopathy noted Resp Effort & Inspection:?normal respiratory effort Auscultation:?clear to auscultation bilaterally Cardio Rate:?regular rate Rhythm:?regular rhythm Integumentary The bite wound is barely perceptible at the tip of the right middle finger. There are 2 scratches to the dorsal aspect of the base of the right middle finger. No active bleeding. Full range of motion. Strength and sensation intact. Neurovascularly intact. Neuro General:?patient alert, patient awake and patient oriented x3 Initial Vital Signs Initial Vital Signs: Vital Signs Temperature 97.5 F L 11/02/24 10:45 Pulse Rate 52 L 11/02/24 10:45 Respiratory Rate 19 11/02/24 10:45 Blood Pressure 133/60 11/02/24 10:45 Pulse Oximetry 100 11/02/24 10:45 Oxygen Delivery Method Room Air 11/02/24 10:45 <Luis Crespo MD - Last Filed: 11/03/24 07:06> Initial Vital Signs Initial Vital Signs: Vital Signs Temperature 97.5 F L 11/02/24 10:45 Pulse Rate 52 L 11/02/24 10:45 Respiratory Rate 19 11/02/24 10:45 Blood Pressure 133/60 11/02/24 10:45 Pulse Oximetry 100 11/02/24 10:45 Oxygen Delivery Method Room Air 11/02/24 10:45 Course <Felton Elias PA-C - Last Filed: 11/02/24 13:30> Orders Ordered: Discontinued Medications Diphtheria/Tetanus/Acell Pertussis (Tet,Diph,Pertuss(Acell),Vac/Pf 0.5 Ml Syringe) 0.5 ml IM .ONCE ONE Stop: 11/02/24 13:13 Last Admin: 11/02/24 13:18 Dose: 0.5 ml Documented By: SB Vital Signs Vital signs: Vital Signs - 8 hr 11/02/24 10:45 Temperature 97.5 F L Pulse Rate 52 L Respiratory Rate 19 Blood Pressure 133/60 Pulse Oximetry 100 Oxygen Delivery Method Room Air <Luis Crespo MD - Last Filed: 11/03/24 07:06> Orders Ordered: Discontinued Medications Diphtheria/Tetanus/Acell Pertussis (Tet,Diph,Pertuss(Acell),Vac/Pf 0.5 Ml Syringe) 0.5 ml IM .ONCE ONE Stop: 11/02/24 13:13 Last Admin: 11/02/24 13:18 Dose: 0.5 ml Documented By: SB Vital Signs Vital signs: Vital Signs - 8 hr 11/02/24 10:45 Temperature 97.5 F L Pulse Rate 52 L Respiratory Rate 19 Blood Pressure 133/60 Pulse Oximetry 100 Oxygen Delivery Method Room Air MDM - Animal Bite <Felton Elias PA-C - Last Filed: 11/02/24 13:30> MDM Narrative Medical decision making narrative: 59-year-old female presents to the ED status post a squirrel bite and scratch sustained to her right middle finger earlier today. The bite wound is barely perceptible at the tip of the right middle finger. There are 2 scratches to the dorsal aspect of the base of the right middle finger. No active bleeding. Full range of motion. No indication for imaging today. Tetanus was updated today. Prescribed prophylactic antibiotics. ED return precautions discussed with patient. Patient verbalized understanding. Medical records reviewed: Yes Discharge Plan Departure Patient Disposition: Home Clinical Impression: Bite by animal Instructions: DI for Animal Bites Activity Restrictions/Additional Instructions: You were evaluated in the ED today for a squirrel bite and scratch. You are being prescribed antibiotics as a cautionary measure to avoid infection. Your tetanus was also updated today which should be valid for the next 10 years. Ple ase continue to watch for signs of infection including worsening redness, swelling, discharge, warmth, pain. Return to the ED if you note any signs of infection. Prescriptions: New amoxicillin-pot clavulanate 875-125 mg tablet 1 tab PO Q12H 7 Days Qty: 14 0RF No Action fluticasone propionate 50 mcg/actuation spray,suspension 1 spray NASAL DAILY cholecalciferol (vitamin D3) 1,000 unit capsule 1,000 unit PO DAILY multivitamin Tablet 1 tab PO DAILY hydrocodone-acetaminophen [[place]] 5-325 mg tablet 1 tab PO Q4-6H PRN (Reason: pain) Qty: 4 0RF metronidazole [Flagyl] 500 mg tablet 500 mg PO TID Qty: 30 0RF ciprofloxacin HCl 500 mg tablet 500 mg PO BID Qty: 20 0RF prednisone 20 mg tablet 40 mg PO DAILY Qty: 10 0RF epinephrine 0.3 mg/0.3 mL auto-injector 0.3 mg IM Q5-15M PRN (Reason: anaphylaxis) Qty: 2 0RF Rx Instructions: do not exceed 3 doses per episode Referrals: Liza Chavira DO [Primary Care Provider] - Stand Alone Forms: Patient Portal/API/Survey ED Sign-out <Luis Crespo MD - Last Filed: 11/03/24 07:06> Cosign ED Attending Amy Attestation: I was immediately available in the department for consultation. This documentation has been reviewed and I agree with assessment and plan. Supervised by Luis Crespo MD
[2024-11-02 13:35] VITALS: BP 117/67; PULSE 85; RESP 16; O2SAT 98
== END 2024-11-02 13:35 | disposition home or self-care (01) ==
PROVIDERS: Emergency Provider Student in an Organized Health Care Education/Training Program; PCP Family Medicine
DX: S60.472A Other superficial bite of right middle finger, initial encounter (principal); W53.21XA Bitten by squirrel, initial encounter; Z23 Encounter for immunization
CPT/HCPCS: 90471; 99283; 90715

== ENCOUNTER → 2024-11-25 16:44 | Outpatient (CLI) | payer OTHER, SELFPAY ==
--- NOTE | 2024-11-25 16:46 | DI.MRI.S_ITS ---
PROCEDURE: MR CERVICAL SPINE WO CON INDICATIONS: RT C7 RADICULOPATHY TECHNIQUE: Noncontrast sagittal T1 spin echo and T2 fast spin echo, sagittal STIR, foraminal oblique sagittal T2 fast spin echo, and axial gradient echo or T2 fast spin echo through the cervical spine. COMPARISON: None. FINDINGS: Image quality: Excellent. Alignment and Curvature: There is straightening of normal cervical lordosis. Bone Marrow: There is no marrow edema. No fracture or dislocation. Spinal Cord: Visualized spinal cord has normal size and signal. No cerebellar tonsillar herniation. Paraspinous Soft Tissues: No paravertebral masses. Prevertebral soft tissues are normal in thickness. C2-C3: Normal appearance. C3-C4: Disc desiccation. Mild diffuse disc bulge with mild effacement of thecal sac anteriorly. No significant neural foraminal narrowing. C4-C5: There is disc desiccation. Broad-based disc bulge and bilateral uncovertebral hypertrophic changes are seen causing [id number] central canal stenosis and bilateral neural foraminal narrowing. C5-C6: There is disc desiccation and loss of disc height. Broad-based disc bulge and bilateral uncovertebral hypertrophic changes are seen causing moderate central canal stenosis, moderate right worse than left bilateral neural foraminal narrowing. Bulging disc likely contacting right C6 nerve root. C6-C7: Loss of disc height and disc desiccation. Broad-based disc bulge and bilateral uncovertebral hypertrophic changes with [id number] central canal stenosis, moderate left-sided neural foraminal narrowing and mild right-sided neural foraminal narrowing. Bulging disc likely contacting left C7 nerve root. C7-T1: Normal appearance. IMPRESSION: 1. No marrow edema. No fracture or dislocation. 2. 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 3. No abnormal cervical spinal cord signal. No gross paraspinous soft tissue abnormalities. Dictated by: Murphy Rasheed M.D. on 11/26/2024 at 14:28 Approved by: Murphy Rasheed M.D. on 11/26/2024 at 14:33
== END ==
PROVIDERS: PCP Family Medicine; Referring Provider Family Medicine; Visit Provider Family Medicine
DX: M47.22 Other spondylosis with radiculopathy, cervical region (principal); M48.02 Spinal stenosis, cervical region; M50.11 Cervical disc disorder with radiculopathy, high cervical region
CPT/HCPCS: 72141